=== PATIENT | male | born 1960 | race Caucasian/White ===

== ENCOUNTER → 2021-08-18 16:18 | Outpatient (BNVA) | payer OTHER, SELFPAY | PROVIDERS: Family Provider General Practice; Visit Provider Nurse Practitioner Family | DX: Z20.822 Contact with and (suspected) exposure to COVID-19 (principal) | CPT/HCPCS: 87635 ==

== ENCOUNTER 2021-08-25 11:55 | Outpatient (CLI) | payer OTHER, SELFPAY ==
[2021-08-25 12:26] VITALS: BP 133/76; PULSE 67; RESP 18; TEMP 36.9; O2SAT 97; BMI 22.6
[2021-08-25 12:53] VITALS: BP 117/70; PULSE 61; RESP 18; O2SAT 97
[2021-08-25 14:15] VITALS: BP 148/83; PULSE 61; RESP 18; TEMP 36.4; O2SAT 97
== END 2021-08-25 11:56 | disposition home or self-care (01) ==
LOC: OPS 11:58
PROVIDERS: Visit Provider Nurse Practitioner Family
DX: U07.1 COVID-19 (principal)
CPT/HCPCS: 96365

== ENCOUNTER → 2022-03-24 09:36 | Outpatient (BNVA) | payer MEDICAID, SELFPAY | PROVIDERS: Visit Provider Emergency Medicine | DX: M19.042 Primary osteoarthritis, left hand (principal); M19.041 Primary osteoarthritis, right hand; M79.641 Pain in right hand; M79.642 Pain in left hand; Z82.61 Family history of arthritis | CPT/HCPCS: 73130; 80053; 85025; 86160; 86162; 86200; 86235; 86255; 86376; 86431 ==

== ENCOUNTER → 2022-05-19 14:26 | Outpatient (BNVA) | payer MEDICAID, SELFPAY | PROVIDERS: Visit Provider Emergency Medicine | DX: I10 Essential (primary) hypertension (principal) | CPT/HCPCS: 80053; 80061; 83880; 84443; 85025 ==